=== PATIENT | male | born 1985 | race Caucasian/White ===

== ENCOUNTER 2017-01-23 11:47 | Emergency (ER) | payer MEDICAID ==
--- NOTE | 2017-01-23 13:13 | EDM.PDOC ---
ED HPI GENERAL MEDICAL PROBLEM - General Chief Complaint: Fever Stated Complaint: FEVER FOR TWO DAYS Time Seen by Provider: 01/23/17 11:48 Source of Information: Reports: Patient History Limitations: Reports: No Limitations - History of Present Illness INITIAL COMMENTS - FREE TEXT/NARRATIVE: This patient complains of a fever for about 2 days. Says his temperature was up to 105.6 this morning and he took some Tylenol and then went down to 103. He has body aches. Slight cough and a pretty severe sore throat area and has not had a flu shot. Denies any significant past medical history Treatments FOOT DOCTOR: Reports: Acetaminophen Lower Legs Pain Score (Numeric/FACES): 4 - Related Data Allergies Allergy/AdvReac Type Severity Reaction Status Date / Time Sulfa (Sulfonamide Allergy Other Verified 01/23/17 12:16 Antibiotics) Home Meds: Home Meds NK [No Known Home Meds] 01/23/17 [History] Past Medical History Dermatologic History: Reports: Other (See Below) Other Dermatologic History: cyst on upper left thigh - Infectious Disease History Infectious Disease History: Reports: Chicken Pox Social & Family History - Tobacco Use Smoking Status *Q: Current Every Day Smoker Years of Tobacco use: 14 Packs/Tins Daily: 1 Second Hand Smoke Exposure: Yes - Caffeine Use Caffeine Use: Reports: Energy Drinks - Recreational Drug Use Recreational Drug Use: No ED ROS ENT - Review of Systems Review Of Systems: See Below Constitutional: Reports: Fever, Chills HEENT: Reports: Throat Pain Respiratory: Reports: No Symptoms Cardiovascular: Reports: No Symptoms Endocrine: Reports: No Symptoms GI/Abdominal: Reports: No Symptoms : Reports: No Symptoms ED EXAM, ENT - Physical Exam Exam: See Below Exam Limited By: No Limitations General Appearance: Alert, WD/WN, Mild Distress Eye Exam: Bilateral Eye: Normal Inspection Ears: Normal External Exam Nose: Normal Inspection Mouth/Throat: Tonsillar Exudates Head: Atraumatic Neck: Normal Inspection Respiratory/Chest: No Respiratory Distress, Lungs Clear Cardiovascular: Regular Rate, Rhythm GI/Abdominal: Non-Tender Back: Normal Inspection Extremities: Normal Inspection Neurological: Alert Psychiatric: Normal Affect Skin: Warm, Dry Course - Vital Signs Last Recorded V/S: Last Vital Signs Temp 37.1 C 01/23/17 12:14 Pulse 124 H 01/23/17 12:14 Resp 18 01/23/17 12:14 BP 124/80 01/23/17 12:14 Pulse Ox 96 01/23/17 12:14 - Re-Assessments/Exams Free Text/Narrative Re-Assessment/Exam: 01/23/17 13:11 Strep test positive Departure - Departure Time of Disposition: 13:11 Disposition: Home, Self-Care 01 Condition: Fair Clinical Impression: Strep pharyngitis - Discharge Information Referrals: PCP,None [Primary Care Provider] - Additional Instructions: For strep throat take penicillin VK 500 mg one 4 times a day for 10 days. You will be contagious until you've been on the antibiotic for 24 hours.
== END 2017-01-23 13:18 | disposition home or self-care (01) ==
LOC: JP.ED 11:47
DX: J02.0 Streptococcal pharyngitis (principal); F17.210 Nicotine dependence, cigarettes, uncomplicated; Z88.2 Allergy status to sulfonamides
CPT/HCPCS: 87430; 99283; 99284

== ENCOUNTER 2020-10-26 07:01 | Day surgery (SDC) | payer MEDICAID ==
[~2020-10-26 07:01] MED LIST: Acetaminophen 500 MG Tab PO ONE; Bupivacaine 0.5% 50 ML MDV ONE; Lidocaine 1% with EPINEPHrine 1:100,000 50 ML MDV ONE
[2020-10-26] MEDS ORDERED: fentaNYL 250 MCG/5 ML SDV ONE ×2 (07:07→09:09)
[2020-10-26] MEDS ORDERED: Rocuronium 50 MG/5 ML Vial ONE (07:08)
[2020-10-26] MEDS ORDERED: Neostigmine Methylsulfate 1 MG/ML 5 ML Syringe ONE (07:08)
[2020-10-26] MEDS ORDERED: Dexamethasone 4 MG/ML SDV ONE (07:08)
[2020-10-26] MEDS ORDERED: Propofol 200 MG/20 ML SDV ONE (07:08)
[2020-10-26] MEDS ORDERED: Glycopyrrolate 0.2 MG/ML 5 ML MDV ONE (07:08)
[2020-10-26] MEDS ORDERED: Succinylcholine 200 MG/10 ML MDV ONE (07:08)
[2020-10-26] MEDS ORDERED: Ondansetron 4 MG/2 ML SDV ONE (07:08)
[2020-10-26] MEDS ORDERED: Dextrose 5%-Lactated Ringers 1,000 ML IV SCH (07:30)
[2020-10-26] MEDS ORDERED: Meropenem 500 MG in Sodium Chloride 0.9% 50 ML IV ONE (07:30)
[2020-10-26] MEDS ORDERED: Bupivacaine 0.5%/EPINEPHrine 1:200,000 50 ML MDV ONE (07:54)
[2020-10-26] MEDS ORDERED: Sodium Chloride 0.9% 10 ML ONE (09:08)
[2020-10-26] MEDS ORDERED: Meropenem 500 MG SDV ONE (09:08)
[2020-10-26] MEDS ORDERED: Meropenem 500 MG SDV IRR ONE (09:18)
[2020-10-26] MEDS ORDERED: Bupivacaine 0.5%/EPINEPHrine 1:200,000 30 ML SDV INJECT ONE ×2 (09:26)
[2020-10-26] MEDS ORDERED: Ketorolac 30 MG/ML SDV ONE (10:10)
[2020-10-26] MEDS ORDERED: oxyCODONE 5 MG Tab PO ONE (11:07)
--- NOTE | 2020-10-31 14:06 | OR ---
DATE OF PROCEDURE: 10/26/2020 SURGEON: Sammy Joshi MD PREOPERATIVE DIAGNOSIS: Complicated recently infected pilonidal disease. PROCEDURE PERFORMED: Wide excision of complicated recently infected pilonidal disease (82309). ANESTHESIA: General. INDICATIONS FOR PROCEDURE: A 35-year-old male presenting with longstanding problems with pilonidal cyst and frequent drainage. This has been going on for several years. The plan is to proceed with wide excision of this area. Potential risks including bleeding, infection, and possibility that the wound may come open were all gone over, and the patient wishes to proceed. DETAILS OF PROCEDURE: The patient was taken to the operating room and placed in a supine position. After general endotracheal anesthesia was induced, he was converted to a prone position and the area over the hidradenitis then prepped and draped. A wide, vertically oriented incision extending from the base of the coccyx inferiorly upward to roughly the mid sacrum superiorly was made. This area contained several tracts running frequently off to the right side requiring fairly wide excision compared to usual for a pilonidal cyst procedure. This was carried down to a plane of clean tissue in all directions and that area then excised and delivered from the field. The wound was irrigated with meropenem-containing saline solution, and deep musculature was anesthetized with 1% lidocaine mixed with Marcaine as was the skin. The incision was then closed with a total of 4 layers of Vicryl stitch beginning with 0 Vicryl stitch at the deeper layers and progressing up to 4-0 Vicryl stitch in the subdermal area and tonie then applied. The bolster dressing was then sutured with some #2 Prolene stitch stability and pressure over the area in the ensuing days, and the patient was taken to the recovery room in satisfactory condition. There were no evident complications. Sammy Joshi MD /[id number]
== END 2020-10-26 11:50 | disposition home or self-care (01) ==
LOC: JP.SDS 07:01
PROVIDERS: ATTEND Surgery
DX: L05.91 Pilonidal cyst without abscess (principal); L08.89 Other specified local infections of the skin and subcutaneous tissue; F17.210 Nicotine dependence, cigarettes, uncomplicated; Z88.2 Allergy status to sulfonamides
CPT/HCPCS: 11771; 36415; 80048; 85027; 88304; A9270; J0330; J1100; J1885; J2185; J2405; J2704; J2710; J3010; J3490; J7121